=== PATIENT | female | born 1950 | race African-American/Black ===

== ENCOUNTER 2019-07-12 17:12 | Emergency (ER) | payer MEDICARE, OTHER ==
[~2019-07-12] VITALS: Ht 175.3 cm; Wt 93.0 kg
[~2019-07-12 17:12] MED LIST: MECL-51 PO; TRAM100T2 PO
[2019-07-12] MEDS ORDERED: DEXAMETHASONE 4 MG TABLET PO ONE (18:30)
[2019-07-12] MEDS ORDERED: PRED20TA PO (18:31)
[2019-07-12] MEDS ORDERED: ALBU2.5V8 IH (18:31)
--- NOTE | 2019-07-12 18:31 | PHYS DOC ---
Past Medical History Past Medical History: No Pertinent History Past Surgical History: Smoking: Less than 1pk/day (1/2 pack) Alcohol Use: Occasionally Drug Use: None Adult General Chief Complaint Chief Complaint: SHORTNESS OF BREATH HPI HPI Patient is a 69 y/o female who presents with SOB after eating some chitterlings with hot sauce at around 1600. She states she has had this same kind of food multiple times in the past without any issues. EMS gave patient oxygen and breathing treatments which seemed to resolve her issue. When pt was seen, she no longer has any SOB or any other complaints. Denies chest pain, nausea, vomiting, or diarrhea. Review of Systems Review of Systems Constitutional: Denies fever or chills Eyes: Denies redness or eye pain HENT: Denies nasal congestion or sore throat Respiratory: Reports shortness of breath Cardiovascular: Denies chest pain or palpitations GI: Denies abdominal pain, nausea, or vomiting : Denies dysuria or hematuria Musculoskeletal: Denies back pain or joint pain Integument: Denies rash or skin lesions Neurologic: Denies headache, focal weakness or sensory changes Complete systems were reviewed and found to be within normal limits, except as documented in this note. Current Medications Current Medications Current Medications Medications (Trade) Dose Ordered Sig/Alistair Start Time Stop Time Status Last Admin Dose Admin Dexamethasone (Decadron) 10 mg 1X ONCE 07/12/19 18:30 07/12/19 18:32 DC 07/12/19 18:39 10 MG Allergies Allergies Allergies Coded Allergies Type Severity Reaction Last Updated Verified shellfish derived Allergy Severe 02/11/14 No Physical Exam Physical Exam Constitutional: Well developed, well nourished, no acute distress, non-toxic appearance HENT: Normocephalic, atraumatic, oropharynx moist Neck: Normal range of motion, no tenderness, supple Cardiovascular: Heart rate normal, regular rhythm Lungs & Thorax: Bilateral breath sounds clear to auscultation, no wheezing, no rales, no rhonchi Abdomen: Soft, no tenderness Skin: Warm, dry, no erythema, no rash Extremities: No tenderness, ROM intact, no edema Neurologic: Alert and oriented X 3, no focal deficits noted Current Patient Data Vital Signs Vital Signs Date Time Temp Pulse Resp B/P (MAP) Pulse Ox O2 Delivery O2 Flow Rate FiO2 07/12/19 18:40 80 18 141/82 (101) 97 Room Air 07/12/19 17:40 98.2 98.2 EKG EKG EKG @1741 on 07/12/19, 69 BPM, NSR , no ST elevation Radiology/Procedures Radiology/Procedures [] Course & Med Decision Making Course & Med Decision Making Pt is a 69 y/o female who presents with SOB after eating food with hot sauce. She currently no longer has any complaints and was given a breathing treatment and oxygen by EMS. Pt will be given dexamethasone in the ED and d/c with prednisone and a rescue inhaler. Patient stable for discharge with outpatient follow-up with PCP. Discussed findings and plan with patient and family, who acknowledge understanding and agreement. Dragon Disclaimer Dragon Disclaimer This electronic medical record was generated, in whole or in part, using a voice recognition dictation system. Departure Departure Impression: Primary Impression: Allergic reaction Additional Impression: Shortness of breath Disposition: HOME, SELF-CARE Condition: STABLE Referrals: JOSUÉ GRIER MD (PCP) Patient Instructions: Food Allergy, Ldly-ti-Sraj, Shortness of Breath, Kxnd-qd-Kotg Scripts Prednisone (PREDNISONE) 20 Mg Tablet 2 TAB PO DAILY, #8 TAB Start this medication tomorrow, 07/13/19 Prov: SCOTT COHEN DO 07/12/19 Albuterol Sulfate (Proair Hfa) 8.5 Gm Hfa.aer.ad 2 PUFF IH PRN Q4-6HRS PRN for wheezing for 21 Days, #1 INHALER 0 Refills Prov: SCOTT COHEN DO 07/12/19 Problem Qualifiers Primary Impression: Allergic reaction Encounter type: initial encounter Qualified Codes: T78.40XA - Allergy, u nspecified, initial encounter SCOTT COHEN DO Jul 12, 2019 18:31
[2019-07-12 18:40] VITALS: BP 141/82
--- NOTE | 2019-07-13 10:12 | EKG ---
[facility] [address] [place] [address] Test Date: 2019-07-12 Test Time: 17:41:16 Pat Name: NORBERTO LEON Department: Room: Gender: F Filler Mixer: : [id number] Requested By: SCOTT COHEN Order Number: [id number] Reading MD: Measurements Intervals [place] Rate: 68 P: 48 MO: 208 QRS: 33 QRSD: 66 T: 39 QT: 400 QTc: 430 Interpretive Statements SINUS RHYTHM QRS(T) CONTOUR ABNORMALITY CANNOT RULE OUT ANTEROSEPTAL MYOCARDIAL DAMAGE BORDERLINE ECG No previous ECG available for comparison
== END 2019-07-12 18:48 | disposition home or self-care (01) ==
LOC: ER 17:12
DX: T78.1XXA Other adverse food reactions, not elsewhere classified, initial encounter (principal); R06.02 Shortness of breath; F17.200 Nicotine dependence, unspecified, uncomplicated; Z91.013 Allergy to seafood; X58.XXXA Exposure to other specified factors, initial encounter
CPT/HCPCS: 93005; 99283; J8540